=== PATIENT | female | born 1995 | race Caucasian/White ===

== ENCOUNTER 2019-11-07 23:02 | Inpatient (IN) | payer OTHER ==
[~2019-11-07] VITALS: Ht 162.6 cm; Wt 77.1 kg
[~2019-11-07 23:02] MED LIST: ZOFRAN ODT4 MG PO
[2019-11-08] VITALS (8 sets, daily range): BP systolic 99–119; BP diastolic 51–68
[2019-11-08 02:34] LABS: BASOPHILS # (AUTO) 0.1 (0.0-0.1); BASOPHILS % 0.4 % (0.0-1.0); EOSINOPHILS # (AUTO) 0.3 (0.0-0.4); EOSINOPHILS % 1.8 % (0.0-6.0); HEMATOCRIT 42.2 % (34.2-44.1); HEMOGLOBIN 13.7 g/dL (12.0-16.0); LYMPHOCYTES # (AUTO) 3.5 (1.0-3.2); LYMPHOCYTES % 23.2 % (18.0-39.1); MEAN CORPUSCULAR HEMOGLOBIN 29.3 pg (28-32); MEAN CORPUSCULAR HGB CONC 32.5 g/dL (31-35); MEAN CORPUSCULAR VOLUME 90.2 fL (81-99); MONOCYTES % 6.4 % (4.4-11.3); NEUTROPHILS # (AUTO) 10.1 (2.1-6.9); NEUTROPHILS % 66.8 % (38.7-80.0); PLATELET COUNT 368 x10e3/uL (140-360); RED BLOOD COUNT 4.68 x10e6/uL (3.6-5.1)
[2019-11-08 02:55] LABS: ALANINE AMINOTRANSFERASE 30 IU/L (0-55); ALBUMIN 3.2 g/dL (3.5-5.0); ALBUMIN/GLOBULIN RATIO 0.6 (0.8-2.0); ALKALINE PHOSPHATASE 81 IU/L (40-150); ANION GAP 12.9 mmol/L (8-16); BLOOD UREA NITROGEN 9 mg/dL (7-26); BUN/CREATININE RATIO 13 (6-25); CALCIUM 9.7 mg/dL (8.4-10.2); CARBON DIOXIDE 26 mmol/L (22-29); CHLORIDE 107 mmol/L (98-107); CREATININE, SERUM 0.72 mg/dL (0.57-1.11); EST GLOMERULAR FILTRATION RATE > 60 ML/MIN (60-); GLUCOSE 87 mg/dL (74-118); POTASSIUM 3.9 mmol/L (3.5-5.1); SODIUM 142 mmol/L (136-145)
[2019-11-08 04:04] LABS: CLARITY,URINE CLEAR (CLEAR); COLOR,URINE YELLOW (YELLOW)
[2019-11-08 04:05] LABS: BILIRUBIN,URINE NEGATIVE (NEGATIVE); KETONES,URINE NEGATIVE (NEGATIVE); LEUKOCYTE ESTERASE ,URINE NEGATIVE (NEGATIVE); NITRITE,URINE NEGATIVE (NEGATIVE); PROTEIN,URINE DIPSTICK NEGATIVE (NEGATIVE); URINE UROBILINOGEN 0.2 mg/dL (0.2 - 1)
[2019-11-08 04:06] LABS: PREGNANCY TEST, URINE NEGATIVE (NEGATIVE)
[2019-11-08 04:11] LABS: BACTERIA,URINE FEW /HPF; EPITHELIAL CELLS,URINE FEW /LPF; RBC,URINE 0-5 /HPF (0-5); WBC,URINE (MAN) 0-5 /HPF (0-5)
[2019-11-08] MEDS ORDERED: SODIUM CHLORIDE 0.9% 50ML 50 ML ONE (04:30)
[2019-11-08] MEDS ORDERED: IOPAMIDOL 370 MG/ML 200 ML INFUS..BTL INJ ONE (04:30)
--- NOTE | 2019-11-08 05:08 | Diagnostic Imaging Report ---
ADDENDUM #1 ADDENDUM: The findings in the original dictation were discussed with Dr. Roosevelt Pizano, who indicated the findings were understood, on 11/08/2019 at 5:03 AM. Signed by: Dr. Jannet Naylor MD on 11/08/2019 5:17 AM ORIGINAL REPORT EXAM: CT Abdomen and Pelvis WITH contrast INDICATION: Right lower quadrant pain. COMPARISON: None. TECHNIQUE: Abdomen and pelvis were scanned utilizing a multidetector helical scanner from the lung base to the pubic symphysis after administration of IV contrast. Coronal and sagittal reformations were obtained. Routine protocol was performed. Scan was performed when during portal venous phase. IV CONTRAST: 100 cc of Isovue-370. ORAL CONTRAST: None COMPLICATIONS: None RADIATION DOSE: Total DLP: 521.4 mGy*cm Estimated effective dose: (DLP x 0.015 x size factor) mSv CTDIvol has been reviewed. It is below the limits set by the Radiation Protocol Committee (RPC). FINDINGS: LINES and TUBES: None. LOWER THORAX: Minimal subsegmental atelectasis in the lingula. HEPATOBILIARY: No evidence of focal lesion. No biliary ductal dilation. GALLBLADDER: Decompressed. No radio-opaque stones or sludge. No wall thickening. SPLEEN: No splenomegaly. PANCREAS: No focal masses or ductal dilatation. ADRENALS: No adrenal nodules KIDNEYS/URETERS: Kidneys enhance symmetrically. No evidence of hydronephrosis, solid mass, or stone. GI TRACT: The appendix is dilated, measuring up to 1.3 cm with a thick wall, appendicoliths, and surrounding inflammatory changes. Reactive wall thickening in the cecum. No evidence of drainable fluid collection. No bowel obstruction. PELVIC ORGANS/BLADDER: Calcified pelvic phleboliths. Decompressed bladder. LYMPH NODES: No lymphadenopathy. Subcentimeter small right lower quadrant lymph nodes, likely reactive. VESSELS: Unremarkable. PERITONEUM / RETROPERITONEUM: Trace free fluid in the right lower quadrant. No free air. BONES AND SOFT TISSUES: Unremarkable. CONCLUSION: Acute appendicitis without evidence of gross perforation or drainable fluid collection. Signed by: Dr. Jannet Naylor MD on 11/08/2019 5:05 AM
[2019-11-08] MEDS ORDERED: MORPHINE SULFATE INJ 4 MG/ML INJ 1ML IV PRN (06:00)
[2019-11-08] MEDS ORDERED: SODIUM CHLORIDE 0.9% 1000ML 1,000 ML IV SCH ×2 (06:00→12:15)
[2019-11-08] MEDS ORDERED: CEFTRIAXONE SOD 1 GM/NS 50 ML 50 ML IV ONE (06:00)
[2019-11-08] MEDS ORDERED: FEMYNOR 28 TAB1 EACH PO (06:04)
--- NOTE | 2019-11-08 06:18 | NUR ---
PT ARRIVED TO ROOM BY STRETCHER. PT IS AAOX3, RR EVEN AND NON-LABORED, ON ROOM AIR. NO S/SX OF DISTRESS NOTED. PT AMBULATED FROM STRETCHER TO HOSPITAL BED. STEADY GAIT. ORIENTED PT TO HOSPITAL ROOM, CALL LIGHT, PHONE, BED CONTROLS AND LIGHTS. FAMILY AT BEDSIDE.
--- OUTSIDE RECORDS SUMMARY | 2019-11-08 06:18 | XMS REPORT ---
Author [facility] Address Unknown Phone Unavailable Care Team Providers Care Pipeline Engineer Name Role Phone ROOSEVELT DORSEY Unavailable Unavailable Problems This patient has no known problems. Allergies, Adverse Reactions, Alerts This patient has no known allergies or adverse reactions. Medications This patient has no known medications. Results Test Description Test Time Test Comments Text Results Atomic Results Result Comments CT ABDOMEN/PELVIS W 2019-11-08 04:58:00 [place] [address] Patient Name: MILEY MILLARD MR #: [id number] : 1995 Age/Sex: 24/F Req #: [id number] Adm Physician: Ordered by: ROOSEVELT DORSEY DO Report #: [id number] Location: ER Room/Bed: Procedure: [id number] CT/CT ABDOMEN/PELVIS W Exam Date: 11/08/19 Exam Time: 0425 REPORT STATUS: Signed ADDENDUM #1 ADDENDUM: The findings in the original dictation were discussed with Dr. Roosevelt Dorsey, who indicated the findings were understood, on 11/08/2019 at 5:03 AM. Signed by: Dr. Anthony Meredith MD on 11/08/2019 5:17 AM ORIGINAL REPORT EXAM: CT Abdomen and Pelvis WITH contrast INDICATION: Right lower quadrant pain. COMPARISON: None. TECHNIQUE: Abdomen and pelvis were scanned utilizing a multidetector helical scanner from the lung base to the pubic symphysis after administration of IV contrast. Coronal and sagittal reformations were obtained. Routine protocol was performed. Scan was performed when during portal venous phase. IV CONTRAST: 100 cc of Isovue-370. ORAL CONTRAST: None COMPLICATIONS: None RADIATION DOSE: Total DLP: 521.4 mGy*cm Estimated effective dose: (DLP x 0.015 x size factor) mSv CTDIvol has been reviewed. It is below the limits set by the Radiation Protocol Committee (RPC). FINDINGS: LINES and TUBES: None. LOWER THORAX: Minimal subsegmental atelectasis in the lingula. HEPATOBILIARY: No evidence of focal lesion. No biliary ductal dilation. GALLBLADDER: Decompressed. No radio-opaque stones or sludge. No wall thickening. SPLEEN: No splenomegaly. PANCREAS: No focal masses or ductal dilatation. ADRENALS: No adrenal nodules KIDNEYS/URETERS: Kidneys enhance symmetrically. No evidence of hydronephrosis, solid mass, or stone. GI TRACT: The appendix is dilated, measuring up to 1.3 cm with a thick wall, appendicoliths, and surrounding inflammatory changes. Reactive wall thickening in the cecum. No evidence of drainable fluid collection. No bowel obstruction. PELVIC ORGANS/BLADDER: Calcified pelvic phleboliths. Decompressed bladder. LYMPH NODES: No lymphadenopathy. Subcentimeter small right lower quadrant lymph nodes, likely reactive. VESSELS: Unremarkable. PERITONEUM / RETROPERITONEUM: Trace free fluid in the right lower quadrant. No free air. BONES AND SOFT TISSUES: Unremarkable. CONCLUSION: Acute appendicitis without evidence of gross perforation or drainable fluid collection. Signed by: Dr. Anthony Meredith MD on 11/08/2019 5:05 AM Dictated By: ANTHONY MEREDITH MD [id number] Transcribed By: ISRAEL on 11/08/19 0810 COPY TO: ROOSEVELT DORSEY DO
--- NOTE | 2019-11-08 07:05 | NUR ---
PAGE PLACED FOR MD Promise HOFFMAN CONCERNING CONSULTATION. WAITING FOR CALLBACK.
--- NOTE | 2019-11-08 07:08 | NUR ---
CALL PLACED TO MD HE CONCERNING PT REPORTS OF SEVERE ACID REFLUX. LEFT MESSAGE WAITING FOR CALLBACK.
[2019-11-08] MEDS ORDERED: DEXTROSE 5%/0.45% SOD CHL 1,000 ML IV ONE ×2 (08:30→17:45)
[2019-11-08] MEDS ORDERED: BUPIVACAINE 0.25% 30ML SDV INJ ONE (10:18)
[2019-11-08] MEDS ORDERED: ROCURONIUM BROMIDE 10 MG/ML 5ML VIAL ONE (10:29)
[2019-11-08] MEDS ORDERED: KETOROLAC TROMETHAMINE 30 MG/ML VIAL ONE (10:29)
[2019-11-08] MEDS ORDERED: NEOSTIGMINE 1 MG/ML 10ML VIAL ONE (10:29)
[2019-11-08] MEDS ORDERED: SEVOFLURANE INHAL SOLN 250 ML PEN BTL ONE (10:29)
[2019-11-08] MEDS ORDERED: DEXAMETHASONE SOD PHOS INJ 4 MG/ML VIAL ONE (10:29)
[2019-11-08] MEDS ORDERED: GLYCOPYRROLATE INJ 0.2 MG/ML VIAL ONE (10:29)
[2019-11-08] MEDS ORDERED: ACETAMINOPHEN 1000 MG/100 ML IV ONE (10:29)
[2019-11-08] MEDS ORDERED: LIDOCAINE HCL 2% LOCAL INJ 5 ML SDV VIAL INJ ONE (10:29)
[2019-11-08] MEDS ORDERED: ONDANSETRON HCL INJ 2MG/ML 2ML 2 MG/ML VIAL ONE (10:29)
[2019-11-08] MEDS ORDERED: PROPOFOL IV EMULSION 10 MG/ML 20 ML VIAL ONE (10:29)
[2019-11-08] MEDS ORDERED: ACETAMINOPHEN 1000 MG/100 ML IV PRN (12:15)
[2019-11-08] MEDS ORDERED: MEPERIDINE HCL INJ 25 MG/ML VIAL ONE (12:42)
[2019-11-08] MEDS ORDERED: PROMETHAZINE HCL (IM) 25 MG/ML VIAL ONE (12:47)
--- NOTE | 2019-11-08 12:52 | Operative Report ---
DATE OF PROCEDURE: 11/08/2019 SURGEON: Miguel Angel Lamar MD PREOPERATIVE DIAGNOSIS: Acute appendicitis. POSTOPERATIVE DIAGNOSIS: Acute appendicitis with periappendiceal abscess. OPERATION PERFORMED: Laparoscopic appendectomy. CEMENT CONVEYOR OPERATOR: VINNY Bourne. ANESTHESIA: General endotracheal. COMPLICATIONS: None. ESTIMATED BLOOD LOSS: Minimal. DESCRIPTION OF PROCEDURE: With the patient lying in bed in the supine position under good general endotracheal anesthesia, the abdomen was prepped with Betadine solution and draped in the usual manner. A Veress needle was introduced into the umbilicus and pneumoperitoneum was established without any difficulty. A 12 mm trocar was placed into the umbilicus and a 10 mm video laparoscope was placed into the intra-abdominal cavity. Under direct vision, a 5 mm trocar was placed in the right upper abdomen and another one was placed in the left lower quadrant. Video laparoscopy at this point revealed the patient had multiple adhesions to the anterior abdominal wall from her previous section. The appendix was thickly inflamed with the base of the appendix being rather distended. Some of the adhesions to the lower abdominal wall had to be taken down in order to be able to mobilize the appendix. Once this was done, the base of the appendix was slowly and carefully dissected and the mesentery of the appendix was divided with an application of the Endo-JESSICA vascular stapler. Two loads were necessary. After this was done, the base of the appendix was then slowly divided using another application of the Endo-JESSICA stapler. The appendix was then placed in a pouch and removed through the umbilicus. Video laparoscopy was then again carried out. All the excess fluid was aspirated. The staple lines were found to be intact. The pneumoperitoneum was evacuated and all the trocars were removed under direct vision. The midline fascia at the umbilicus was then closed with a [id number] of 0 Vicryl. All layers were infiltrated on the way out with solution of 0.25% Marcaine. Subcutaneous tissue was approximated with 3-0 Vicryl and the skin was closed with subcuticular 5-0 Vicryl. Benzoin, Steri-Strips, and Band-Aids were applied. The sponge, lap, and needle count was correct. The patient tolerated the procedure well and returned to the recovery room in stable condition. MD JOSE RAFAEL Sutton/LEONORA /[id number]
[2019-11-08] MEDS ORDERED: PANTOPRAZOLE SOD 40 MG TABEC PO ONE (15:15)
[2019-11-08] MEDS ORDERED: HYDRALAZINE HCL 20 MG/ML VIAL IV PRN (15:15)
[2019-11-08] MEDS ORDERED: PANTOPRAZOLE SOD 40 MG TABEC PO SCH (16:15)
[2019-11-08] MEDS: DOCUSATE SODIUM 100 MG CAP PO SCH (18:20)
[2019-11-08] MEDS: PIPER-TAZ 3.375 GM 50 ML IV SCH (18:20)
[2019-11-08] MEDS: METRONIDAZOLE 500MG/NS 100ML 100 ML IV SCH (18:20)
--- NOTE | 2019-11-08 19:05 | NUR ---
Received patient in bed with eyes closed. Resp. even and unlabored. D51/2 NS @125ml/hr to Rt AC 20g. No redness/swelling noted. Call light in reach. Bed in locked and low position.
[2019-11-08] MEDS: HYDROMORPHONE 1MG/1ML INJ IV PRN (20:30)
[2019-11-09] VITALS (10 sets, daily range): BP systolic 91–107; BP diastolic 52–66
[2019-11-09] MEDS: METRONIDAZOLE 500MG/NS 100ML 100 ML IV SCH ×4 (00:05→17:51)
[2019-11-09] MEDS: PIPER-TAZ 3.375 GM 50 ML IV SCH ×4 (00:36→17:51)
[2019-11-09] MEDS: HYDROMORPHONE 1MG/1ML INJ IV PRN ×7 (00:48→22:50)
[2019-11-09 05:09] LABS: BASOPHILS % 0.1 % (0.0-1.0); EOSINOPHILS % 0.1 % (0.0-6.0); LYMPHOCYTES % 13.7 % (18.0-39.1); MEAN CORPUSCULAR HEMOGLOBIN 29.1 pg (28-32); MEAN CORPUSCULAR HGB CONC 31.6 g/dL (31-35); MEAN CORPUSCULAR VOLUME 92.2 fL (81-99); NEUTROPHILS # (AUTO) 11.7 (2.1-6.9); NEUTROPHILS % 78.2 % (38.7-80.0); PLATELET COUNT 347 x10e3/uL (140-360); RED BLOOD COUNT 4.12 x10e6/uL (3.6-5.1); RED CELL DISTRIBUTION WIDTH 12.4 % (11.7-14.4)
[2019-11-09 05:24] LABS: ANION GAP 8.9 mmol/L (8-16); BLOOD UREA NITROGEN 6 mg/dL (7-26); BUN/CREATININE RATIO 8 (6-25); CARBON DIOXIDE 29 mmol/L (22-29); CHLORIDE 105 mmol/L (98-107); CREATININE, SERUM 0.76 mg/dL (0.57-1.11); EST GLOMERULAR FILTRATION RATE > 60 ML/MIN (60-); GLUCOSE 107 mg/dL (74-118); MAGNESIUM 1.7 MG/DL (1.3-2.1); PHOSPHORUS 3.8 MG/DL (2.3-4.7); POTASSIUM 3.9 mmol/L (3.5-5.1); SODIUM 139 mmol/L (136-145)
[2019-11-09] MEDS ORDERED: MAGNESIUM SULF 1GRAM/DEXTROSE 100 ML IV ONE (08:20)
[2019-11-09] MEDS: DOCUSATE SODIUM 100 MG CAP PO SCH ×3 (08:50→17:51)
[2019-11-09] MEDS: PANTOPRAZOLE SOD 40 MG TABEC PO SCH ×2 (08:50→17:51)
[2019-11-09] MEDS ORDERED: FENTANYL CITRATE/PF 100MCG/2 ML INJ ONE (15:06)
[2019-11-09] MEDS ORDERED: MIDAZOLAM HCL 2 MG/2 ML VIAL ONE (15:06)
[2019-11-09] MEDS: HYDROCODONE/APAP 7.5MG-325MG 1 EA TAB PO PRN ×2 (16:29→17:15)
[2019-11-09] MEDS ORDERED: SODIUM CHLORIDE 0.9% 250ML 250 ML ONE (16:42)
[2019-11-09] MEDS: SODIUM CHLORIDE 0.9% 1000ML 1,000 ML IV SCH (17:50)
--- NOTE | 2019-11-09 19:05 | NUR ---
Received patient in room. Patient up and ambulating. AAOx3. NS @ 125ml/hr to RT AC 20g. Denies any pain or discomfort at this time.
[2019-11-09] MEDS: ONDANSETRON HCL INJ 2MG/ML 2ML 2 MG/ML VIAL IV PRN (22:50)
[2019-11-10] VITALS (8 sets, daily range): BP systolic 82–114; BP diastolic 50–70
[2019-11-10] MEDS: SODIUM CHLORIDE 0.9% 1000ML 1,000 ML IV SCH ×3 (02:16→20:45)
[2019-11-10] MEDS: ACETAMINOPHEN 1000 MG/100 ML IV PRN ×2 (03:13→09:06)
[2019-11-10] MEDS: PIPER-TAZ 3.375 GM 50 ML IV SCH ×5 (05:17→23:22)
[2019-11-10] MEDS: METRONIDAZOLE 500MG/NS 100ML 100 ML IV SCH ×4 (05:54→16:27)
[2019-11-10 05:57] LABS: BASOPHILS % 0.2 % (0.0-1.0); EOSINOPHILS % 0.2 % (0.0-6.0); HEMATOCRIT 35.2 % (34.2-44.1); HEMOGLOBIN 11.3 g/dL (12.0-16.0); LYMPHOCYTES # (AUTO) 2.8 (1.0-3.2); LYMPHOCYTES % 16.6 % (18.0-39.1); MEAN CORPUSCULAR HEMOGLOBIN 29.7 pg (28-32); MEAN CORPUSCULAR HGB CONC 32.1 g/dL (31-35); MEAN CORPUSCULAR VOLUME 92.6 fL (81-99); MONOCYTES # (AUTO) 1.1 (0.2-0.8); MONOCYTES % 6.7 % (4.4-11.3); NEUTROPHILS # (AUTO) 12.7 (2.1-6.9); NEUTROPHILS % 75.5 % (38.7-80.0); PLATELET COUNT 306 x10e3/uL (140-360); RED CELL DISTRIBUTION WIDTH 12.6 % (11.7-14.4)
[2019-11-10 06:04] LABS: ANION GAP 7.5 mmol/L (8-16); BLOOD UREA NITROGEN < 5 mg/dL (7-26); CALCIUM 8.6 mg/dL (8.4-10.2); CARBON DIOXIDE 28 mmol/L (22-29); CHLORIDE 106 mmol/L (98-107); CREATININE, SERUM 0.67 mg/dL (0.57-1.11); EST GLOMERULAR FILTRATION RATE > 60 ML/MIN (60-); GLUCOSE 81 mg/dL (74-118); POTASSIUM 3.5 mmol/L (3.5-5.1); SODIUM 138 mmol/L (136-145)
[2019-11-10 06:30] LABS: BUN/CREATININE RATIO 7 (6-25)
--- NOTE | 2019-11-10 07:00 | NUR ---
Received patient lying in bed with eyes open. Respiration even and unlabored without SOB. Call light in reach.
[2019-11-10] MEDS: PANTOPRAZOLE SOD 40 MG TABEC PO SCH (07:59)
[2019-11-10] MEDS: HYDROCODONE/APAP 7.5MG-325MG 1 EA TAB PO PRN ×4 (07:59→21:36)
--- NOTE | 2019-11-10 15:05 | NUR ---
Non-working PIV to right AC discontinued, catheter tip intact, no bleeding noted. New IV on left AC 20g.
[2019-11-10] MEDS: DOCUSATE SODIUM 100 MG CAP PO SCH (17:22)
--- NOTE | 2019-11-10 19:00 | NUR ---
WALKING ROUNDS PERFORMED, RECEIVED PT SITTING ON SIDE OF BED, AAOX3, RR EVEN AND NON-LABORED, ON ROOM AIR. PT REPORTS SHE IS GOING TO AMBULATE IN [place] WITH FAMILY MEMBER. LEFT PT SITTING ON SIDE OF BED, BED IN LOW LOCKED POSITION, SIDE RAILS UPX2, CALL LIGHT AND PHONE WITHIN REACH.
--- NOTE | 2019-11-10 19:08 | NUR ---
Report given to shift mgr. Respiration even and unlabored without SOB. Call light in reach.
--- NOTE | 2019-11-10 19:20 | NUR ---
PT AMBULATING IN [place] WITH FAMILY AT SIDE, STEADY GAIT NOTED.
[2019-11-10] MEDS: BISACODYL 10 MG SUPP PR SCH (20:44)
[2019-11-11 00:07] VITALS: BP 101/67
[2019-11-11] MEDS: HYDROMORPHONE 1MG/1ML INJ IV PRN ×6 (00:20→18:09)
[2019-11-11] MEDS: METRONIDAZOLE 500MG/NS 100ML 100 ML IV SCH ×4 (00:20→17:05)
[2019-11-11] MEDS: ONDANSETRON HCL INJ 2MG/ML 2ML 2 MG/ML VIAL IV PRN ×2 (00:20→04:14)
[2019-11-11] MEDS: HYDROCODONE/APAP 7.5MG-325MG 1 EA TAB PO PRN ×4 (01:36→16:50)
[2019-11-11 05:27] LABS: BASOPHILS % 0.3 % (0.0-1.0); EOSINOPHILS # (AUTO) 0.1 (0.0-0.4); HEMATOCRIT 32.2 % (34.2-44.1); HEMOGLOBIN 10.3 g/dL (12.0-16.0); LYMPHOCYTES # (AUTO) 2.5 (1.0-3.2); LYMPHOCYTES % 18.4 % (18.0-39.1); MEAN CORPUSCULAR HEMOGLOBIN 29.5 pg (28-32); MEAN CORPUSCULAR VOLUME 92.3 fL (81-99); MONOCYTES # (AUTO) 0.8 (0.2-0.8); NEUTROPHILS # (AUTO) 10.2 (2.1-6.9); NEUTROPHILS % 73.9 % (38.7-80.0); PLATELET COUNT 274 x10e3/uL (140-360); RED BLOOD COUNT 3.49 x10e6/uL (3.6-5.1); RED CELL DISTRIBUTION WIDTH 12.5 % (11.7-14.4)
[2019-11-11 05:45] VITALS: BP 99/67
[2019-11-11 05:46] LABS: ANION GAP 9.6 mmol/L (8-16); BLOOD UREA NITROGEN < 5 mg/dL (7-26); CALCIUM 8.5 mg/dL (8.4-10.2); CARBON DIOXIDE 27 mmol/L (22-29); CHLORIDE 108 mmol/L (98-107); CREATININE, SERUM 0.61 mg/dL (0.57-1.11); EST GLOMERULAR FILTRATION RATE > 60 ML/MIN (60-); GLUCOSE 88 mg/dL (74-118); POTASSIUM 3.6 mmol/L (3.5-5.1); SODIUM 141 mmol/L (136-145)
[2019-11-11 05:58] LABS: BUN/CREATININE RATIO 8 (6-25)
[2019-11-11] MEDS: PIPER-TAZ 3.375 GM 50 ML IV SCH ×3 (06:27→17:05)
--- NOTE | 2019-11-11 07:00 | NUR ---
BEDSIDE SHIFT REPORT RECEIVED FROM GASOLINE CATALYST OPERATOR NURSE. PT DENIES NEEDS AT THIS TIME.
[2019-11-11] MEDS: BISACODYL 10 MG SUPP PR SCH (07:54)
[2019-11-11] MEDS: DOCUSATE SODIUM 100 MG CAP PO SCH ×2 (08:09→16:50)
[2019-11-11 08:21] VITALS: BP 109/57
[2019-11-11] MEDS: SODIUM CHLORIDE 0.9% 1000ML 1,000 ML IV SCH (09:18)
[2019-11-11 09:42] VITALS: BP 109/57
--- NOTE | 2019-11-11 11:50 | NUR ---
PT HAD SMALL FORMED BM AND PASSING GAS. PT HAVING ABDOMINAL CRAMPING.
[2019-11-11 13:26] VITALS: BP 119/71
[2019-11-11] MEDS ORDERED: ACETAMINOPHEN 325 MG TAB PO PRN (17:45)
[2019-11-11] MEDS ORDERED: NORCO 5-325 TA1 EACH PO (18:37)
[2019-11-11] MEDS ORDERED: LEVAQUIN500 MG PO (18:41)
[2019-11-11] MEDS ORDERED: FLAGYL500 MG (18:42)
--- NOTE | 2019-11-12 05:53 | Discharge Summary ---
PERTINENT HISTORY AND PHYSICAL FINDINGS: The patient's chief complaint was right-sided abdominal pain. HISTORY OF PRESENT ILLNESS: Ms. Hanks is a 24-year-old female, who began having right-sided abdominal pain on 11/06/2019, which worsened on 11/07/2019, with associated nausea and vomiting. She then presented to the emergency department at the [facility]. A CT the abdomen and pelvis showed acute appendicitis and she had appendectomy by Dr. Lamar on 11/08/2019. PAST MEDICAL HISTORY: PCOS and influenza 1.5 weeks prior to this admission. PAST SURGICAL HISTORY: in 2016. FAMILY HISTORY: Denies any family history. SOCIAL HISTORY: Smoked one pack per day for four years, now vapes one pot every two days. She quit smoking in 2007 as far as regular cigarettes. She drinks socially. Denies any use of illicit drugs. ALLERGIES: NO KNOWN ALLERGIES. ADMITTING DIAGNOSES: 1. Acute appendicitis, status post laparoscopic appendectomy on 11/08/[address] Lamar. 2. Right-sided acute abdominal pain due to acute appendicitis. 3. Active vaping, history of smoking. 4. Recent influenza. DISCHARGE DIAGNOSES: 1. Acute appendicitis, status post laparoscopic appendectomy on 11/08/2019. 2. Acute postoperative abdominal pain. 3. Active vaping, history of smoking. 4. Acute mild hypokalemia. On admission WBCs 15.18, hemoglobin 13.7, hematocrit 42.2, and platelets 368. Potassium 3.9, BUN 9, creatinine 0.72, estimated GFR greater than 60. Total protein 8.5, albumin 3.2, initial magnesium 1.7. Urinalysis on 11/08/2019 was negative. Influenza A and B were negative. CT of the abdomen and pelvis completed on 11/08/2019 according to the interpreting radiologist showed acute appendicitis without evidence of gross perforation or drainable fluid collection. Vital signs on the day of discharge, temperature 97.7, heart rate 97, respirations 18, blood pressure 119/71, and pulse oximetry 97. WBCs 13.76, hemoglobin 10.3, hematocrit 32.2, and platelets 274. Potassium 3.6, BUN less than 5, creatinine 0.61, estimated GFR greater than 60. Magnesium on 11/10/2019 was 1.9. From what I understand, the surgeon, Dr. Lamar rounded on the patient today, indicated in some fashion that the patient could be discharged home. The patient was discharged with prescriptions for Levaquin 500 mg p.o. daily, Flagyl 500 mg p.o. t.i.d., and Trona 5 mg p.o. every 4-6 hours p.r.n. for pain, which were all written by Dr. Lamar. I was not called to be notified that the patient was being discharged. I did not send any prescriptions home with the patient. I did not give any order for the patient to be discharged per documentation. A discharge order was entered at 1702 hours. Instructions entered include out of bed, regular diet. Levaquin/Flagyl/Trona, to office . Dictated by Olayinka Koenig NP Abraham Otoole MD HWP/MODL /[id number]
== END 2019-11-11 19:20 | disposition home or self-care (01) | DRG 340 ==
LOC: ER 23:02 → ERHOLD 11-08 06:16 → MED/SURG 11-08 06:18 → OBSVTOIN 11-11 10:43
PROVIDERS: ADMIT Internal Medicine; ATTEND Internal Medicine
PROC: 0DTJ4ZZ Resection of Appendix, Percutaneous Endoscopic Approach (ICD-10-PCS; principal; 2019-11-08 10:55)
DX: K35.33 Acute appendicitis with perforation, localized peritonitis, and gangrene, with abscess (principal); Z72.0 Tobacco use; E83.42 Hypomagnesemia; I95.9 Hypotension, unspecified; Z87.898 Personal history of other specified conditions; E87.6 Hypokalemia; K66.0 Peritoneal adhesions (postprocedural) (postinfection); G89.18 Other acute postprocedural pain
CPT/HCPCS: 36415; 74177; 80048; 80053; 81001; 81025; 83735; 84100; 85025; 87400; 88304; 96360; 99284; C1766; G0378; J0696; J1100; J1170; J1885; J2001; J2175; J2250; J2270; J2405; J2543; J2550; J2710; J3010; J3475; J7030; J7050; Q9967